=== PATIENT | female | born 1975 | race Caucasian/White ===

== ENCOUNTER 2018-06-17 17:30 | Emergency (ER) | payer MEDICAID ==
[2018-06-17 18:51] VITALS: RESP 20; O2SAT 99
[2018-06-17] MEDS ORDERED: Albuterol-Ipratrop 3 mg / 0.5 (3 ml) UD INH STA (20:45)
[2018-06-17] MEDS ORDERED: Albuterol-Ipratrop 3 mg / 0.5 (3 ml) UD ONE ×2 (20:46→20:49)
--- NOTE | 2018-06-17 21:10 | ED PDOC ---
HPI: Influenza Time Seen by Provider: 06/17/18 19:48 Chief Complaint: Flu-like Symptoms Chief Complaint (Provider): Influenza History Per: Patient, Family Exam Limitations: no limitations Have you had recent travel within the past 21 days to any of: No Onset/Duration Of Symptoms: Days (two) Symptoms include: fever, bodyaches, cough, nasal congestion, diarrhea. denies: sore throat Sick Contacts (Context): None Hx Influenza Vaccination: No Additional complaint(s):: Pt presents to the ED with influenza like symptoms inlcuding congestion, body aches, fever and headache. Pt denies NVD Past Medical History Reviewed: Historical Data, Nursing Documentation, Vital Signs Vital Signs: Last Vital Signs Temp 99.9 F H 06/17/18 20:32 Pulse 109 H 06/17/18 18:49 Resp 20 06/17/18 18:49 BP 155/94 H 06/17/18 18:49 Pulse Ox 99 06/17/18 18:49 - Medical History PMH: HTN - Surgical History Surgical History: Appendectomy - Family History Family History: States: Unknown Family Hx - Home Medications Home Medications: Ambulatory Orders Medication Instructions Recorded Fluticasone Nasal [Flonase] 2 actuation NS DAILY #1 bottle 08/04/16 RX: Ibuprofen [Motrin Tab] 1 tab PO Q6 PRN #15 tab 08/04/16 Oseltamivir Phosphate [Tamiflu] 75 mg PO BID #10 capsule 06/17/18 - Allergies Allergies/Adverse Reactions: Allergies Allergy/AdvReac Type Severity Reaction Status Date / Time No Known Allergies Allergy Verified 06/17/18 18:49 Review of Systems ROS Statement: Except As Marked, All Systems Reviewed And Found Negative Constitutional: Positive for: Fever, Chills, Weakness ENT: Positive for: Nose Congestion Respiratory: Positive for: Cough Musculoskeletal: Positive for: Shoulder Pain Neurological: Positive for: Headache Physical Exam - Reviewed Nursing Documentation Reviewed: Yes Vital Signs Reviewed: Yes - Physical Exam Appears: Positive for: Well, Uncomfortable Head Exam: Positive for: ATRAUMATIC, NORMAL INSPECTION Skin: Positive for: Normal Color, Warm. Negative for: Diaphoresis, Pallor, Rash Eye Exam: Positive for: Normal appearance, EOMI, PERRL. Negative for: Nystagmus, Periorbital swelling, Periorbital tenderness ENT: Positive for: Normal ENT Inspection Neck: Positive for: Normal, Painless ROM, Supple. Negative for: Decreased ROM Cardiovascular/Chest: Positive for: Regular Rate, Rhythm, Chest Non Tender. Negative for: Edema Respiratory: Positive for: Wheezing. Negative for: Accessory Muscle Use, Rales, Rhonchi, Stridor Pulses-Carotid (L): 2+ Pulses-Carotid (R): 2+ Pulses-Radial (L): 2+ Pulses-Radial (R): 2+ Medical Decision Making Medical Decision Making: Evaluated and Treated for influenza CXR wet read by me as normal wth no infiltrates Pt is stable for discharge and will be discharged with tamiflu - ECG O2 Sat by Pulse Oximetry: 99 Disposition - Clinical Impression Clinical Impression: Influenza - Patient ED Disposition Is Patient to be Admitted: No Doctor Will See Patient In The: Office Counseled Patient/Family Regarding: Studies Performed, Diagnosis, Need For Followup, Rx Given - Disposition Referrals: [facility], [facility] [Outside] Disposition: Routine/Home Disposition Time: 21:14 Condition: STABLE Prescriptions: Oseltamivir Phosphate [Tamiflu] 75 mg PO BID #10 capsule Instructions: Flu, Adult (DC) Forms: [place] (Serbian)
[2018-06-17 22:18] VITALS: BP 138/88; PULSE 96; TEMP 98.9
--- NOTE | 2018-06-18 07:56 | RAD ---
Date of service: 06/17/2018 HISTORY: r/o pna COMPARISON: No prior. TECHNIQUE: Chest PA and lateral FINDINGS: LUNGS: No active pulmonary disease. PLEURA: No significant pleural effusion identified. No pneumothorax apparent. CARDIOVASCULAR: No aortic atherosclerotic calcification present. Normal cardiac size. No pulmonary vascular congestion. OSSEOUS STRUCTURES: No significant abnormalities. VISUALIZED UPPER ABDOMEN: Normal. OTHER FINDINGS: None. IMPRESSION: No active disease.
== END 2018-06-17 22:18 | disposition home or self-care (01) ==
LOC: H.ER 17:30
DX: J11.1 Influenza due to unidentified influenza virus with other respiratory manifestations (principal); I10 Essential (primary) hypertension